=== PATIENT | female | born 1965 | race Asian ===

== ENCOUNTER 2021-04-19 21:51 | Inpatient (IN) | payer MEDICARE, MEDICAID ==
[~2021-04-19] VITALS: Ht 165.1 cm; Wt 78.0 kg
[2021-04-19] MEDS ORDERED: PIPERACILLIN/TAZ 3.375G PREMIX 50 ML IV ONE (22:15)
[2021-04-19] MEDS ORDERED: SODIUM CHLORIDE 0.9% 1,000 ML IV ONE (22:15)
[2021-04-19] MEDS ORDERED: VANCOMYCIN 1 G PREMIX 200 ML IV ONE (22:15)
[2021-04-19 22:28] LABS: CHLORIDE 95 mEq/L (98-107)
[2021-04-19 22:31] LABS: BASOPHILS % 0.1 % (0.0-2.0); EOSINOPHILS % 0.2 % (0.0-5.0); ETHANOL BLOOD < 10 mg/dL; HEMATOCRIT. 34.9 % (36.0-48.0); HEMOGLOBIN. 11.3 g/dL (12.0-16.0); LYMPHOCYTES % 9.5 % (20.0-50.0); MEAN CORPUSCULAR VOLUME 86.6 fL (81.0-99.0); MEAN PLATELET VOLUME 7.6 fl (7.4-10.4); MONOCYTES % 3.9 % (2.0-8.0); NEUTROPHILS % 86.3 % (40.0-76.0); PLATELET 311 x1000/uL (130-400); RED BLOOD CELL COUNT 4.03 mill/uL (4.2-5.4); RED CELL DISTRIBUTION WIDTH 14.1 % (11.6-14.6)
[2021-04-19 23:18] LABS: CLARITY URINE CLEAR (CLEAR); COLOR URINE YELLOW (YELLOW); KETONES URINE TRACE (NEGATIVE); LEUKOCYTE ESTERASE URINE 2+ (NEGATIVE); NITRITE URINE NEGATIVE (NEGATIVE); OCCULT BLOOD URINE TRACE (NEGATIVE); PH URINE 7.5 (4.5-8.0); PROTEIN URINE 4+ (NEGATIVE); SPECIFIC GRAVITY URINE 1.017 (1.005-1.030); UROBILINOGEN URINE 0.2 E.U./dL (0.2-1.0)
[2021-04-19 23:34] LABS: *BARBITURATES SCREEN URINE NEGATIVE (NEGATIVE); *COCAINE SCREEN URINE NEGATIVE (NEGATIVE); METHADONE URINE SCREEN NEGATIVE (NEGATIVE); OPIATES URINE SCREEN PRESUMTIVE POSITIVE (NEGATIVE); PHENCYCLIDINE URINE SCREEN NEGATIVE (NEGATIVE)
[2021-04-19 23:35] LABS: *AMPHETAMINES SCREEN URINE NEGATIVE (NEGATIVE); *BENZODIAZEPINES SCREEN URINE NEGATIVE (NEGATIVE); CANNABINOID URINE SCREEN NEGATIVE (NEGATIVE)
[2021-04-20] MEDS: INSULIN LISPRO 100 UNITS/ML SUBCUT SCH ×4 (09:00→21:00)
[2021-04-20] MEDS ORDERED: DEXTROSE 50% WATER 50ML SYRINGE IV PRN (09:00)
[2021-04-20] MEDS ORDERED: DEXTROSE 50% WATER 50ML SYRINGE IV NR (09:00)
[2021-04-20] MEDS: BLOOD SUGAR DIAGNOSTIC STRIP TEST SCH ×4 (09:12→20:15)
[2021-04-20 15:30] VITALS: BP 103/47
[2021-04-20] MEDS ORDERED: ACETAMINOPHEN 325MG TABLET PO PRN (15:45)
[2021-04-20 16:00] VITALS: BP 168/80
[2021-04-20] MEDS: AMLODIPINE 10MG TABLET PO SCH (16:58)
[2021-04-20] MEDS: CEFTRIAXONE 1,000 MG in DEXTROSE 5% WATER 50 ML IV SCH (18:05)
[2021-04-20 20:00] VITALS: BP 125/66
[2021-04-21] VITALS: BP 145/48
[2021-04-21 04:00] VITALS: BP 119/66
[2021-04-21 06:05] LABS: BASOPHILS % 0.1 % (0.0-2.0); EOSINOPHILS % 5.2 % (0.0-5.0); HEMATOCRIT. 27.8 % (36.0-48.0); HEMOGLOBIN. 9.2 g/dL (12.0-16.0); LYMPHOCYTES % 14.4 % (20.0-50.0); MEAN CORPUSCULAR HEMOGLOBIN 28.8 pg (28.0-32.0); MEAN CORPUSCULAR VOLUME 86.9 fL (81.0-99.0); MEAN PLATELET VOLUME 7.6 fl (7.4-10.4); MONOCYTES % 8.2 % (2.0-8.0); NEUTROPHILS % 72.1 % (40.0-76.0); PLATELET 282 x1000/uL (130-400); RED CELL DISTRIBUTION WIDTH 14.3 % (11.6-14.6)
[2021-04-21] MEDS: BLOOD SUGAR DIAGNOSTIC STRIP TEST SCH ×4 (06:08→21:12)
[2021-04-21] MEDS: INSULIN LISPRO 100 UNITS/ML SUBCUT SCH ×4 (06:09→21:34)
[2021-04-21 08:00] VITALS: BP 158/58
[2021-04-21] MEDS: AMLODIPINE 10MG TABLET PO SCH (09:12)
[2021-04-21 12:00] VITALS: BP 150/78
[2021-04-21 16:00] VITALS: BP 164/76
[2021-04-21] MEDS: CEFTRIAXONE 1,000 MG in DEXTROSE 5% WATER 50 ML IV SCH (17:19)
[2021-04-21] MEDS: LOSARTAN POTASSIUM 50 MG TABLET PO SCH (17:19)
[2021-04-21 20:00] VITALS: BP 151/73
[2021-04-21 20:56] LABS: T4 FREE 1.11 ng/dL (0.76-1.46)
[2021-04-22] VITALS: BP 132/65
[2021-04-22 04:00] VITALS: BP 156/61
[2021-04-22] MEDS: BLOOD SUGAR DIAGNOSTIC STRIP TEST SCH ×4 (05:56→20:15)
[2021-04-22 06:45] LABS: BASOPHILS % 0.1 % (0.0-2.0); HEMATOCRIT. 30.4 % (36.0-48.0); HEMOGLOBIN. 9.8 g/dL (12.0-16.0); LYMPHOCYTES % 9.9 % (20.0-50.0); MEAN CORPUSCULAR HEMOGLOBIN 27.9 pg (28.0-32.0); MEAN CORPUSCULAR VOLUME 86.3 fL (81.0-99.0); MEAN PLATELET VOLUME 7.7 fl (7.4-10.4); MONOCYTES % 7.7 % (2.0-8.0); NEUTROPHILS % 76.3 % (40.0-76.0); PLATELET 286 x1000/uL (130-400); RED BLOOD CELL COUNT 3.52 mill/uL (4.2-5.4); RED CELL DISTRIBUTION WIDTH 14.5 % (11.6-14.6)
[2021-04-22] MEDS: INSULIN LISPRO 100 UNITS/ML SUBCUT SCH ×4 (07:15→20:15)
[2021-04-22 07:30] LABS: PHOSPHORUS 8.9 mg/dL (2.5-4.9)
[2021-04-22 08:00] VITALS: BP 152/64
[2021-04-22] MEDS: LOSARTAN POTASSIUM 50 MG TABLET PO SCH (08:05)
[2021-04-22] MEDS: AMLODIPINE 10MG TABLET PO SCH (08:06)
[2021-04-22] MEDS: ONDANSETRON HCL 4MG/2ML INJ IV PRN (10:53)
[2021-04-22 12:00] VITALS: BP 160/71
[2021-04-22] MEDS: ENOXAPARIN 30MG/0.3ML SYR SUBCUT SCH (13:40)
[2021-04-22 16:00] VITALS: BP 196/73
[2021-04-22] MEDS: CLONIDINE 0.1MG TABLET PO PRN (16:50)
[2021-04-22] MEDS: SEVELAMER CARBONATE 800 MG TABLET PO SCH (16:51)
[2021-04-22 19:01] LABS: HEPATITIS B SURFACE AB < 3.1 mIU/mL
[2021-04-22 20:00] VITALS: BP 130/59
[2021-04-22] MEDS: ATORVASTATIN CALCIUM 40MG TABLET PO SCH (20:15)
[2021-04-22 22:01] LABS: HEPATITIS B SURFACE ANTIGEN NEGATIVE
[2021-04-22 22:31] LABS: HEPATITIS A AB IGM NEGATIVE (NEGATIVE)
[2021-04-23] VITALS: BP 121/60
[2021-04-23] MEDS: CEFTRIAXONE 1,000 MG in DEXTROSE 5% WATER 50 ML IV SCH ×2 (02:48→17:19)
[2021-04-23] MEDS: ONDANSETRON HCL 4MG/2ML INJ IV PRN ×2 (03:38→10:02)
[2021-04-23 04:00] VITALS: BP 145/63
[2021-04-23] MEDS: BLOOD SUGAR DIAGNOSTIC STRIP TEST SCH ×4 (06:40→20:31)
[2021-04-23] MEDS: INSULIN LISPRO 100 UNITS/ML SUBCUT SCH ×4 (06:40→20:31)
[2021-04-23 07:20] LABS: BASOPHILS % 0.1 % (0.0-2.0); EOSINOPHILS % 3.6 % (0.0-5.0); HEMOGLOBIN. 9.7 g/dL (12.0-16.0); LYMPHOCYTES % 9.6 % (20.0-50.0); MEAN CORPUSCULAR HEMOGLOBIN 28.3 pg (28.0-32.0); MEAN PLATELET VOLUME 7.5 fl (7.4-10.4); MONOCYTES % 5.9 % (2.0-8.0); NEUTROPHILS % 80.8 % (40.0-76.0); PLATELET 293 x1000/uL (130-400); RED BLOOD CELL COUNT 3.41 mill/uL (4.2-5.4); RED CELL DISTRIBUTION WIDTH 14.2 % (11.6-14.6)
[2021-04-23 08:00] VITALS: BP 153/62
[2021-04-23] MEDS: ASPIRIN 81MG TABLET PO SCH (08:06)
[2021-04-23] MEDS: SEVELAMER CARBONATE 800 MG TABLET PO SCH ×3 (08:07→17:18)
[2021-04-23 12:00] VITALS: BP 151/52
[2021-04-23] MEDS ORDERED: METOCLOPRAMIDE HCL 10MG/2ML VIAL IV PRN (13:30)
[2021-04-23] MEDS: ENOXAPARIN 30MG/0.3ML SYR SUBCUT SCH (13:55)
[2021-04-23] MEDS: FOLIC ACID 1MG TABLET PO SCH (14:54)
[2021-04-23] MEDS: METOCLOPRAMIDE HCL 10MG/2ML VIAL IV SCH ×3 (14:55→23:27)
[2021-04-23 16:00] VITALS: BP 143/60
[2021-04-23 19:58] VITALS: BP 147/57
[2021-04-23] MEDS: ATORVASTATIN CALCIUM 40MG TABLET PO SCH (20:31)
[2021-04-24 00:06] VITALS: BP 137/54
[2021-04-24 04:00] VITALS: BP 150/58
[2021-04-24] MEDS: BLOOD SUGAR DIAGNOSTIC STRIP TEST SCH ×4 (05:57→22:51)
[2021-04-24] MEDS: METOCLOPRAMIDE HCL 10MG/2ML VIAL IV SCH ×3 (06:01→18:01)
[2021-04-24] MEDS: INSULIN LISPRO 100 UNITS/ML SUBCUT SCH ×4 (06:30→22:51)
[2021-04-24 07:17] LABS: TOTAL IRON BINDING CAPACITY 181 ug/dL (250-450)
[2021-04-24 08:00] VITALS: BP 153/63
[2021-04-24] MEDS: SEVELAMER CARBONATE 800 MG TABLET PO SCH ×3 (08:58→17:36)
[2021-04-24] MEDS: ASPIRIN 81MG TABLET PO SCH (08:58)
[2021-04-24] MEDS: FOLIC ACID 1MG TABLET PO SCH (08:59)
[2021-04-24 12:00] VITALS: BP 156/64
[2021-04-24] MEDS: ENOXAPARIN 30MG/0.3ML SYR SUBCUT SCH (12:39)
[2021-04-24 16:00] VITALS: BP 164/69
[2021-04-24 18:00] LABS: BASOPHILS % 0.2 % (0.0-2.0); EOSINOPHILS % 5.7 % (0.0-5.0); HEMATOCRIT. 29.1 % (36.0-48.0); HEMOGLOBIN. 9.6 g/dL (12.0-16.0); LYMPHOCYTES % 13.8 % (20.0-50.0); MEAN CORPUSCULAR VOLUME 85.4 fL (81.0-99.0); MEAN PLATELET VOLUME 7.5 fl (7.4-10.4); MONOCYTES % 8.9 % (2.0-8.0); NEUTROPHILS % 71.4 % (40.0-76.0); PLATELET 299 x1000/uL (130-400); RED BLOOD CELL COUNT 3.41 mill/uL (4.2-5.4); RED CELL DISTRIBUTION WIDTH 13.7 % (11.6-14.6)
[2021-04-24] MEDS: CEFTRIAXONE 1,000 MG in DEXTROSE 5% WATER 50 ML IV SCH (18:01)
[2021-04-24 20:00] VITALS: BP 137/67
[2021-04-24] MEDS: ATORVASTATIN CALCIUM 40MG TABLET PO SCH (22:55)
[2021-04-25] VITALS (7 sets, daily range): BP systolic 128–174; BP diastolic 65–75
[2021-04-25] MEDS: METOCLOPRAMIDE HCL 10MG/2ML VIAL IV SCH ×4 (00:17→18:31)
[2021-04-25] MEDS: CLONIDINE 0.1MG TABLET PO PRN ×2 (05:08→20:18)
[2021-04-25] MEDS: BLOOD SUGAR DIAGNOSTIC STRIP TEST SCH ×4 (06:42→20:07)
[2021-04-25] MEDS: INSULIN LISPRO 100 UNITS/ML SUBCUT SCH ×4 (06:43→20:20)
[2021-04-25] MEDS: SEVELAMER CARBONATE 800 MG TABLET PO SCH ×4 (06:43→17:07)
[2021-04-25] MEDS: ASPIRIN 81MG TABLET PO SCH (08:41)
[2021-04-25] MEDS: FOLIC ACID 1MG TABLET PO SCH (08:41)
[2021-04-25] MEDS ORDERED: CYANOCOBALAMIN 1000MCG/ML VIAL IM SCH (10:00)
[2021-04-25 13:10] LABS: ANTI-CARDIOLIPIN AB IGA < 9 APL U/mL (0-11); ANTI-CARDIOLIPIN AB IGG < 9 GPL U/mL (0-14); ANTI-CARDIOLIPIN AB IGM < 9 MPL U/mL (0-12)
[2021-04-25] MEDS: ENOXAPARIN 30MG/0.3ML SYR SUBCUT SCH (13:56)
[2021-04-25] MEDS ORDERED: NIFEDIPINE XL 30MG TAB PO SCH (14:00)
[2021-04-25 16:47] LABS: HEPATITIS B SURFACE ANTIGEN NEGATIVE
[2021-04-25 17:17] LABS: HEPATITIS A AB IGM NEGATIVE (NEGATIVE)
[2021-04-25] MEDS: CEFTRIAXONE 1,000 MG in DEXTROSE 5% WATER 50 ML IV SCH (18:30)
[2021-04-25] MEDS: ATORVASTATIN CALCIUM 40MG TABLET PO SCH (20:17)
[2021-04-26] MEDS ORDERED: CLOP-31 PO (10:34)
[2021-04-26] MEDS ORDERED: METO-539 PO (10:34)
[2021-04-26] MEDS ORDERED: GABA-290 PO (10:34)
[2021-04-26] MEDS ORDERED: FLUT9.9S BOTHNSTRLS (10:34)
[2021-04-26] MEDS ORDERED: CALC667T6 PO (10:34)
[2021-04-26] MEDS ORDERED: AMLO-337 MT (10:34)
[2021-04-26] MEDS ORDERED: LIP40 PO (10:34)
[2021-04-26] MEDS ORDERED: INSU100I24 SQ (10:34)
[2021-04-27 10:06] LABS: ANTI-THROMBIN ACTIVITY 107 % (75-135); PROTEIN C FUNCTIONAL 164 % (73-180)
== END 2021-04-25 22:23 | DRG 64 ==
LOC: EDBD → ER 21:51 → 5WST 22:53 → EDBEDREQSVC 04-20 12:04 → ENRESERV 04-20 12:29
PROVIDERS: ADMIT Internal Medicine; ATTEND Internal Medicine
PROC: 5A1D70Z Performance of Urinary Filtration, Intermittent, Less than 6 Hours Per Day (ICD-10-PCS; principal; 2021-04-22)
PROC: 5A1D70Z Performance of Urinary Filtration, Intermittent, Less than 6 Hours Per Day (ICD-10-PCS; 2021-04-23)
PROC: 5A1D70Z Performance of Urinary Filtration, Intermittent, Less than 6 Hours Per Day (ICD-10-PCS; 2021-04-25)
DX: I63.9 Cerebral infarction, unspecified (principal); G92 Toxic encephalopathy; J96.01 Acute respiratory failure with hypoxia; N18.6 End stage renal disease; I12.0 Hypertensive chronic kidney disease with stage 5 chronic kidney disease or end stage renal disease; J98.11 Atelectasis; N39.0 Urinary tract infection, site not specified; E11.649 Type 2 diabetes mellitus with hypoglycemia without coma; R47.01 Aphasia; I16.0 Hypertensive urgency; K80.20 Calculus of gallbladder without cholecystitis without obstruction; E11.22 Type 2 diabetes mellitus with diabetic chronic kidney disease; E53.8 Deficiency of other specified B group vitamins; B95.2 Enterococcus as the cause of diseases classified elsewhere; D63.1 Anemia in chronic kidney disease; E21.3 Hyperparathyroidism, unspecified; Z60.2 Problems related to living alone; R26.9 Unspecified abnormalities of gait and mobility; E66.9 Obesity, unspecified; Z20.822 Contact with and (suspected) exposure to COVID-19; Y92.009 Unspecified place in unspecified non-institutional (private) residence as the place of occurrence of the external cause; Z79.4 Long term (current) use of insulin; Z82.49 Family history of ischemic heart disease and other diseases of the circulatory system; Z90.710 Acquired absence of both cervix and uterus; Z99.2 Dependence on renal dialysis; Z68.28 Body mass index [BMI] 28.0-28.9, adult; Z79.899 Other long term (current) drug therapy
CPT/HCPCS: 36415; 70544; 70551; 71045; 74177; 80048; 80053; 80061; 80305; 80320; 81003; 81400; 81403; 81407; 81479; 82140; 82270; 82607; 82728; 82746; 82962; 83036; 83540; 83550; 83605; 83880; 84100; 84145; 84439; 84443; 84481; 84484; 85025; 85300; 85303; 85306; 86147; 86705; 86706; 86709; 86803; 87077; 87186; 87340; 87426; 92523; 93005; 93306; 93880; 97162; 97166; 97530; 99218; 99291; C1893; J0696; J1650; J1815; J2405; J2543; J2765; J3370; J3420; J7030; J7060; G0480

== ENCOUNTER 2021-04-25 23:39 | Inpatient (IN) | payer MEDICARE, MEDICAID ==
[~2021-04-25] VITALS: Ht 165.1 cm; Wt 72.1 kg
[2021-04-25 22:30] VITALS: BP 170/75
[2021-04-25 23:00] VITALS: BP 170/75
[2021-04-26] MEDS ORDERED: DEXTROSE 50% WATER 50ML SYRINGE IV PRN
[2021-04-26] MEDS ORDERED: ONDANSETRON HCL 4MG/2ML INJ IV PRN
[2021-04-26 01:00] VITALS: BP 138/65
[2021-04-26] MEDS: METOCLOPRAMIDE HCL 10MG/2ML VIAL IV SCH ×4 (02:01→18:00)
[2021-04-26] MEDS: INSULIN LISPRO 100 UNITS/ML SUBCUT SCH ×4 (05:43→20:29)
[2021-04-26] MEDS: BLOOD SUGAR DIAGNOSTIC STRIP TEST SCH ×4 (05:43→20:29)
[2021-04-26 08:05] VITALS: BP 169/79
[2021-04-26] MEDS: FOLIC ACID 1MG TABLET PO SCH (08:19)
[2021-04-26] MEDS: ASPIRIN 81MG TABLET PO SCH (08:19)
[2021-04-26] MEDS: SEVELAMER CARBONATE 800 MG TABLET PO SCH ×4 (08:20→20:28)
[2021-04-26] MEDS: ENOXAPARIN 30MG/0.3ML SYR SUBCUT SCH (08:20)
[2021-04-26] MEDS: NIFEDIPINE XL 30MG TAB PO SCH (08:27)
[2021-04-26 10:08] LABS: BASOPHILS % 0.1 % (0.0-2.0); EOSINOPHILS % 6.3 % (0.0-5.0); HEMOGLOBIN. 9.2 g/dL (12.0-16.0); LYMPHOCYTES % 13.4 % (20.0-50.0); MEAN CORPUSCULAR HEMOGLOBIN 27.9 pg (28.0-32.0); MEAN CORPUSCULAR VOLUME 85.3 fL (81.0-99.0); MEAN PLATELET VOLUME 7.4 fl (7.4-10.4); MONOCYTES % 8.7 % (2.0-8.0); NEUTROPHILS % 71.5 % (40.0-76.0); PLATELET 283 x1000/uL (130-400); RED BLOOD CELL COUNT 3.29 mill/uL (4.2-5.4); RED CELL DISTRIBUTION WIDTH 13.6 % (11.6-14.6)
[2021-04-26 10:10] LABS: CHLORIDE 101 mEq/L (98-107)
[2021-04-26] MEDS ORDERED: CLOP-31 PO (10:34)
[2021-04-26] MEDS ORDERED: AMLO-337 MT (10:34)
[2021-04-26] MEDS ORDERED: INSU100I24 SQ (10:34)
[2021-04-26] MEDS ORDERED: GABA-290 PO (10:34)
[2021-04-26] MEDS ORDERED: METO-539 PO (10:34)
[2021-04-26] MEDS ORDERED: CALC667T6 PO (10:34)
[2021-04-26] MEDS ORDERED: LIP40 PO (10:34)
[2021-04-26] MEDS ORDERED: FLUT9.9S BOTHNSTRLS (10:34)
[2021-04-26 12:00] VITALS: BP 144/66
[2021-04-26 16:00] VITALS: BP 139/61
[2021-04-26] MEDS: ATORVASTATIN CALCIUM 40MG TABLET PO SCH (20:29)
[2021-04-26 22:00] VITALS: BP 168/71
[2021-04-26 22:30] VITALS: BP 151/63
[2021-04-27] MEDS: METOCLOPRAMIDE HCL 10MG/2ML VIAL IV SCH ×4 (00:08→17:04)
[2021-04-27] MEDS: BLOOD SUGAR DIAGNOSTIC STRIP TEST SCH ×4 (05:32→20:58)
[2021-04-27] MEDS: INSULIN LISPRO 100 UNITS/ML SUBCUT SCH ×4 (05:34→21:43)
[2021-04-27 08:00] VITALS: BP 144/43
[2021-04-27] MEDS: SEVELAMER CARBONATE 800 MG TABLET PO SCH ×5 (08:06→16:31)
[2021-04-27] MEDS: ASPIRIN 81MG TABLET PO SCH (08:06)
[2021-04-27] MEDS: ENOXAPARIN 30MG/0.3ML SYR SUBCUT SCH (08:06)
[2021-04-27] MEDS: FOLIC ACID 1MG TABLET PO SCH (08:06)
[2021-04-27] MEDS: NIFEDIPINE XL 30MG TAB PO SCH (08:10)
[2021-04-27] MEDS: DOCUSATE SODIUM 100MG CAPSULE PO SCH ×2 (12:14→17:04)
[2021-04-27] MEDS: LACTULOSE 20G/30ML UDC PO SCH ×4 (12:14→20:58)
[2021-04-27] MEDS ORDERED: NA PHOS,M-B/NA PHOS,DI-BA ENEMA 118ML PR NR (16:00)
[2021-04-27 20:00] VITALS: BP 144/58
[2021-04-27] MEDS: POLYETHYLENE GLYCOL 3350 (17GM) 1 DOSE PACK PO SCH (20:58)
[2021-04-27] MEDS: ATORVASTATIN CALCIUM 40MG TABLET PO SCH (20:58)
[2021-04-28] MEDS: METOCLOPRAMIDE HCL 10MG/2ML VIAL IV SCH ×4 (00:56→17:09)
[2021-04-28] MEDS: BLOOD SUGAR DIAGNOSTIC STRIP TEST SCH ×4 (06:27→21:50)
[2021-04-28] MEDS: INSULIN LISPRO 100 UNITS/ML SUBCUT SCH ×4 (06:27→21:00)
[2021-04-28 07:36] VITALS: BP 169/76
[2021-04-28 07:54] LABS: BASOPHILS % 0.2 % (0.0-2.0); EOSINOPHILS % 4.6 % (0.0-5.0); HEMATOCRIT. 28.7 % (36.0-48.0); HEMOGLOBIN. 9.5 g/dL (12.0-16.0); LYMPHOCYTES % 17.7 % (20.0-50.0); MEAN CORPUSCULAR HEMOGLOBIN 28.2 pg (28.0-32.0); MEAN CORPUSCULAR VOLUME 85.2 fL (81.0-99.0); MEAN PLATELET VOLUME 7.7 fl (7.4-10.4); MONOCYTES % 8.6 % (2.0-8.0); NEUTROPHILS % 68.9 % (40.0-76.0); PLATELET 258 x1000/uL (130-400); RED BLOOD CELL COUNT 3.36 mill/uL (4.2-5.4); RED CELL DISTRIBUTION WIDTH 13.7 % (11.6-14.6)
[2021-04-28] MEDS: FOLIC ACID 1MG TABLET PO SCH (08:50)
[2021-04-28] MEDS: ASPIRIN 81MG TABLET PO SCH (08:50)
[2021-04-28] MEDS: NIFEDIPINE XL 30MG TAB PO SCH (08:50)
[2021-04-28] MEDS: DOCUSATE SODIUM 100MG CAPSULE PO SCH ×2 (08:50→17:09)
[2021-04-28] MEDS: SEVELAMER CARBONATE 800 MG TABLET PO SCH ×3 (08:51→17:00)
[2021-04-28] MEDS: ENOXAPARIN 30MG/0.3ML SYR SUBCUT SCH (08:51)
[2021-04-28 20:00] VITALS: BP 156/66
[2021-04-28] MEDS: POLYETHYLENE GLYCOL 3350 (17GM) 1 DOSE PACK PO SCH (21:00)
[2021-04-28] MEDS: NIFEDIPINE XL 60MG TAB PO SCH (21:51)
[2021-04-28] MEDS: ATORVASTATIN CALCIUM 40MG TABLET PO SCH (21:51)
[2021-04-29] MEDS: BLOOD SUGAR DIAGNOSTIC STRIP TEST SCH ×4 (05:44→21:17)
[2021-04-29] MEDS: INSULIN LISPRO 100 UNITS/ML SUBCUT SCH ×4 (05:44→21:21)
[2021-04-29] MEDS: METOCLOPRAMIDE HCL 10MG/2ML VIAL IV SCH ×4 (05:45→18:07)
[2021-04-29 07:25] LABS: PHOSPHORUS 5.1 mg/dL (2.5-4.9)
[2021-04-29 07:46] VITALS: BP 125/57
[2021-04-29] MEDS: ASPIRIN 81MG TABLET PO SCH (08:26)
[2021-04-29] MEDS: FOLIC ACID 1MG TABLET PO SCH (08:26)
[2021-04-29] MEDS: DOCUSATE SODIUM 100MG CAPSULE PO SCH ×2 (08:26→18:07)
[2021-04-29] MEDS: SEVELAMER CARBONATE 800 MG TABLET PO SCH ×4 (08:26→17:00)
[2021-04-29] MEDS: ENOXAPARIN 30MG/0.3ML SYR SUBCUT SCH (08:27)
[2021-04-29] MEDS: NIFEDIPINE XL 60MG TAB PO SCH ×2 (08:27→21:00)
[2021-04-29 16:26] LABS: HEPATITIS B SURFACE ANTIGEN NEGATIVE
[2021-04-29 16:55] LABS: HEPATITIS A AB IGM NEGATIVE (NEGATIVE)
[2021-04-29 20:00] VITALS: BP 153/65
[2021-04-29] MEDS: POLYETHYLENE GLYCOL 3350 (17GM) 1 DOSE PACK PO SCH (21:00)
[2021-04-29] MEDS: ATORVASTATIN CALCIUM 40MG TABLET PO SCH (21:17)
[2021-04-30] MEDS: BLOOD SUGAR DIAGNOSTIC STRIP TEST SCH ×4 (05:29→21:00)
[2021-04-30] MEDS: INSULIN LISPRO 100 UNITS/ML SUBCUT SCH ×4 (05:29→22:25)
[2021-04-30] MEDS: METOCLOPRAMIDE HCL 10MG/2ML VIAL IV SCH ×5 (05:45→23:32)
[2021-04-30 08:00] VITALS: BP 155/87
[2021-04-30] MEDS: SEVELAMER CARBONATE 800 MG TABLET PO SCH ×2 (09:00→12:41)
[2021-04-30] MEDS: ASPIRIN 81MG TABLET PO SCH (09:55)
[2021-04-30] MEDS: FOLIC ACID 1MG TABLET PO SCH (09:56)
[2021-04-30] MEDS: ENOXAPARIN 30MG/0.3ML SYR SUBCUT SCH (09:56)
[2021-04-30] MEDS: CLONIDINE 0.1MG TABLET PO PRN (09:57)
[2021-04-30] MEDS: NIFEDIPINE XL 60MG TAB PO SCH ×2 (09:57→22:09)
[2021-04-30] MEDS: DOCUSATE SODIUM 100MG CAPSULE PO SCH ×2 (09:57→18:02)
[2021-04-30 16:09] LABS: HEPATITIS A AB IGM NEGATIVE (NEGATIVE)
[2021-04-30 17:20] LABS: HEPATITIS B SURFACE ANTIGEN NEGATIVE
[2021-04-30 20:00] VITALS: BP 149/71
[2021-04-30] MEDS: ATORVASTATIN CALCIUM 40MG TABLET PO SCH (22:08)
[2021-04-30] MEDS: POLYETHYLENE GLYCOL 3350 (17GM) 1 DOSE PACK PO SCH (22:09)
[2021-05-01 06:21] LABS: BASOPHILS % 0.1 % (0.0-2.0); EOSINOPHILS % 5.3 % (0.0-5.0); HEMATOCRIT. 26.7 % (36.0-48.0); HEMOGLOBIN. 8.8 g/dL (12.0-16.0); LYMPHOCYTES % 21.4 % (20.0-50.0); MEAN CORPUSCULAR HEMOGLOBIN 27.9 pg (28.0-32.0); MEAN CORPUSCULAR VOLUME 84.6 fL (81.0-99.0); MEAN PLATELET VOLUME 7.9 fl (7.4-10.4); MONOCYTES % 10.3 % (2.0-8.0); NEUTROPHILS % 62.9 % (40.0-76.0); PLATELET 224 x1000/uL (130-400); RED BLOOD CELL COUNT 3.16 mill/uL (4.2-5.4); RED CELL DISTRIBUTION WIDTH 13.9 % (11.6-14.6)
[2021-05-01 06:24] LABS: PHOSPHORUS 5.2 mg/dL (2.5-4.9)
[2021-05-01] MEDS: BLOOD SUGAR DIAGNOSTIC STRIP TEST SCH ×3 (06:37→21:00)
[2021-05-01] MEDS: INSULIN LISPRO 100 UNITS/ML SUBCUT SCH ×4 (06:37→22:33)
[2021-05-01] MEDS: METOCLOPRAMIDE HCL 10MG/2ML VIAL IV SCH ×2 (06:38→12:56)
[2021-05-01 08:15] VITALS: BP 117/71
[2021-05-01] MEDS: SEVELAMER CARBONATE 800 MG TABLET PO SCH ×3 (09:00→17:00)
[2021-05-01] MEDS: ASPIRIN 81MG TABLET PO SCH (09:10)
[2021-05-01] MEDS: FOLIC ACID 1MG TABLET PO SCH (09:11)
[2021-05-01] MEDS: DOCUSATE SODIUM 100MG CAPSULE PO SCH (09:11)
[2021-05-01] MEDS: NIFEDIPINE XL 60MG TAB PO SCH ×2 (09:11→20:26)
[2021-05-01] MEDS: ENOXAPARIN 30MG/0.3ML SYR SUBCUT SCH (09:12)
[2021-05-01] MEDS: ACETAMINOPHEN 325MG TABLET PO PRN ×2 (09:12→20:25)
[2021-05-01 20:00] VITALS: BP 153/70
[2021-05-01] MEDS: ATORVASTATIN CALCIUM 40MG TABLET PO SCH (20:26)
[2021-05-01] MEDS: POLYETHYLENE GLYCOL 3350 (17GM) 1 DOSE PACK PO SCH (20:42)
[2021-05-02] MEDS: METOCLOPRAMIDE HCL 10MG/2ML VIAL IV SCH ×5 (00:43→23:10)
[2021-05-02 06:19] LABS: BASOPHILS % 0.1 % (0.0-2.0); EOSINOPHILS % 4.7 % (0.0-5.0); HEMATOCRIT. 27.7 % (36.0-48.0); HEMOGLOBIN. 9.1 g/dL (12.0-16.0); LYMPHOCYTES % 17.2 % (20.0-50.0); MEAN CORPUSCULAR HEMOGLOBIN 27.8 pg (28.0-32.0); MEAN CORPUSCULAR VOLUME 84.9 fL (81.0-99.0); MEAN PLATELET VOLUME 7.7 fl (7.4-10.4); MONOCYTES % 11.5 % (2.0-8.0); NEUTROPHILS % 66.5 % (40.0-76.0); PLATELET 221 x1000/uL (130-400); RED BLOOD CELL COUNT 3.27 mill/uL (4.2-5.4); RED CELL DISTRIBUTION WIDTH 13.8 % (11.6-14.6)
[2021-05-02] MEDS: BLOOD SUGAR DIAGNOSTIC STRIP TEST SCH ×4 (06:30→21:27)
[2021-05-02 08:00] VITALS: BP 171/76
[2021-05-02] MEDS: ASPIRIN 81MG TABLET PO SCH (08:37)
[2021-05-02] MEDS: FOLIC ACID 1MG TABLET PO SCH (08:38)
[2021-05-02] MEDS: NIFEDIPINE XL 60MG TAB PO SCH ×2 (08:38→21:21)
[2021-05-02] MEDS: INSULIN LISPRO 100 UNITS/ML SUBCUT SCH ×4 (08:48→21:00)
[2021-05-02] MEDS: ENOXAPARIN 30MG/0.3ML SYR SUBCUT SCH (08:48)
[2021-05-02] MEDS ORDERED: HYDRALAZINE 20MG/ML VIAL IV ONE (09:00)
[2021-05-02] MEDS: SEVELAMER CARBONATE 800 MG TABLET PO SCH ×4 (09:00→17:50)
[2021-05-02] MEDS: DOCUSATE SODIUM 100MG CAPSULE PO SCH ×3 (09:00→17:50)
[2021-05-02] MEDS: HYDRALAZINE 10 MG in SODIUM CHLORIDE 0.9% 49.5 ML IV NR ×2 (10:00→11:51)
[2021-05-02] MEDS ORDERED: LIDOCAINE HCL 2% JELLY 5ML ONE (12:43)
[2021-05-02] MEDS ORDERED: TETRACAINE/BENZOCAINE/BUTAMBEN 20 GM SPRAY MM ONE (12:44)
[2021-05-02] MEDS ORDERED: MIDAZOLAM HCL 2 MG/2 ML VIAL ONE (13:04)
[2021-05-02] MEDS ORDERED: FENTANYL CITRATE/PF 50MCG/ML 2ML VIAL ONE (13:05)
[2021-05-02] MEDS ORDERED: SULFAMETHOXAZOLE/TRIMETHOPRIM 800/160MG TABLET PO SCH (15:00)
[2021-05-02] MEDS: LOSARTAN POTASSIUM 25 MG TABLET PO SCH (17:50)
[2021-05-02] MEDS: ACETAMINOPHEN 325MG TABLET PO PRN (19:01)
[2021-05-02 20:00] VITALS: BP 145/62
[2021-05-02 20:29] LABS: HEPATITIS B SURFACE ANTIGEN NEGATIVE
[2021-05-02 20:59] LABS: HEPATITIS A AB IGM NEGATIVE (NEGATIVE)
[2021-05-02] MEDS: POLYETHYLENE GLYCOL 3350 (17GM) 1 DOSE PACK PO SCH (21:00)
[2021-05-02] MEDS: ATORVASTATIN CALCIUM 40MG TABLET PO SCH (21:21)
[2021-05-03] MEDS: CLONIDINE 0.1MG TABLET PO PRN ×2 (02:52→08:44)
[2021-05-03 03:00] VITALS: BP 172/67
[2021-05-03] MEDS: MORPHINE SULFATE 2 MG/ML CPJ (NOT FOR IM USE) IV PRN ×3 (03:17→20:31)
[2021-05-03 03:51] LABS: BASOPHILS % 0.1 % (0.0-2.0); EOSINOPHILS % 3.5 % (0.0-5.0); HEMATOCRIT. 27.6 % (36.0-48.0); LYMPHOCYTES % 16.3 % (20.0-50.0); MEAN CORPUSCULAR HEMOGLOBIN 27.8 pg (28.0-32.0); MEAN CORPUSCULAR VOLUME 85.1 fL (81.0-99.0); MEAN PLATELET VOLUME 7.4 fl (7.4-10.4); MONOCYTES % 11.7 % (2.0-8.0); NEUTROPHILS % 68.4 % (40.0-76.0); PLATELET 227 x1000/uL (130-400); RED BLOOD CELL COUNT 3.24 mill/uL (4.2-5.4); RED CELL DISTRIBUTION WIDTH 13.9 % (11.6-14.6)
[2021-05-03] MEDS: METOCLOPRAMIDE HCL 10MG/2ML VIAL IV SCH ×3 (05:43→18:30)
[2021-05-03] MEDS: BLOOD SUGAR DIAGNOSTIC STRIP TEST SCH ×4 (05:47→21:00)
[2021-05-03] MEDS: INSULIN LISPRO 100 UNITS/ML SUBCUT SCH ×4 (05:47→21:00)
[2021-05-03 05:49] VITALS: BP 132/65
[2021-05-03 08:15] VITALS: BP 137/67
[2021-05-03] MEDS: ASPIRIN 81MG TABLET PO SCH (08:46)
[2021-05-03] MEDS: FOLIC ACID 1MG TABLET PO SCH (08:47)
[2021-05-03] MEDS: DOCUSATE SODIUM 100MG CAPSULE PO SCH ×2 (08:47→17:06)
[2021-05-03] MEDS: LOSARTAN POTASSIUM 25 MG TABLET PO SCH (08:47)
[2021-05-03] MEDS: NIFEDIPINE XL 60MG TAB PO SCH ×2 (08:48→21:00)
[2021-05-03] MEDS: SEVELAMER CARBONATE 800 MG TABLET PO SCH ×3 (08:48→17:00)
[2021-05-03] MEDS: ENOXAPARIN 30MG/0.3ML SYR SUBCUT SCH (08:50)
[2021-05-03] MEDS ORDERED: PANTOPRAZOLE 40MG DR TABLET PO SCH (14:15)
[2021-05-03] MEDS ORDERED: MAGNESIUM HYDROXIDE 400MG/5ML 30ML UDC PO NR (14:15)
[2021-05-03 20:00] VITALS: BP 127/58
[2021-05-03] MEDS ORDERED: FAMOTIDINE 20MG TABLET PO SCH (21:00)
[2021-05-03] MEDS: POLYETHYLENE GLYCOL 3350 (17GM) 1 DOSE PACK PO SCH (21:33)
[2021-05-03] MEDS: ATORVASTATIN CALCIUM 40MG TABLET PO SCH (21:33)
[2021-05-04] MEDS: METOCLOPRAMIDE HCL 10MG/2ML VIAL IV SCH ×4 (01:24→18:31)
[2021-05-04] MEDS: BLOOD SUGAR DIAGNOSTIC STRIP TEST SCH ×4 (06:57→21:00)
[2021-05-04 07:49] VITALS: BP 151/69
[2021-05-04] MEDS: INSULIN LISPRO 100 UNITS/ML SUBCUT SCH ×4 (08:26→21:00)
[2021-05-04] MEDS: MORPHINE SULFATE 2 MG/ML CPJ (NOT FOR IM USE) IV PRN (08:50)
[2021-05-04] MEDS: LOSARTAN POTASSIUM 25 MG TABLET PO SCH (08:51)
[2021-05-04] MEDS: FOLIC ACID 1MG TABLET PO SCH (08:51)
[2021-05-04] MEDS: SEVELAMER CARBONATE 800 MG TABLET PO SCH ×3 (08:52→17:26)
[2021-05-04] MEDS: ASPIRIN 81MG TABLET PO SCH (08:52)
[2021-05-04] MEDS: DOCUSATE SODIUM 100MG CAPSULE PO SCH ×2 (08:52→17:26)
[2021-05-04] MEDS: NIFEDIPINE XL 60MG TAB PO SCH ×2 (08:52→21:26)
[2021-05-04] MEDS: ENOXAPARIN 30MG/0.3ML SYR SUBCUT SCH (08:55)
[2021-05-04] MEDS: LACTULOSE 20G/30ML UDC PO SCH ×3 (12:30→21:25)
[2021-05-04] MEDS: DULOXETINE HCL 20MG DR CAPSULE PO SCH (13:22)
[2021-05-04 17:11] LABS: 25-HYDROXY VITAMIN D3 7.8 ng/mL (.)
[2021-05-04 20:00] VITALS: BP 160/68
[2021-05-04] MEDS: ATORVASTATIN CALCIUM 40MG TABLET PO SCH (21:25)
[2021-05-04] MEDS: POLYETHYLENE GLYCOL 3350 (17GM) 1 DOSE PACK PO SCH (21:26)
[2021-05-04] MEDS: ACETAMINOPHEN 325MG TABLET PO PRN (21:27)
[2021-05-05] MEDS: METOCLOPRAMIDE HCL 10MG/2ML VIAL IV SCH ×2 (06:00)
[2021-05-05] MEDS: BLOOD SUGAR DIAGNOSTIC STRIP TEST SCH ×4 (06:33→21:00)
[2021-05-05] MEDS: PANTOPRAZOLE 40MG DR TABLET PO SCH (06:36)
[2021-05-05] MEDS: ASPIRIN 81MG TABLET PO SCH (09:00)
[2021-05-05] MEDS: ENOXAPARIN 30MG/0.3ML SYR SUBCUT SCH (09:00)
[2021-05-05] MEDS: FOLIC ACID 1MG TABLET PO SCH (09:00)
[2021-05-05] MEDS: SEVELAMER CARBONATE 800 MG TABLET PO SCH ×3 (09:00→17:00)
[2021-05-05] MEDS: INSULIN LISPRO 100 UNITS/ML SUBCUT SCH ×4 (09:00→21:00)
[2021-05-05] MEDS: LOSARTAN POTASSIUM 25 MG TABLET PO SCH (09:00)
[2021-05-05] MEDS: DOCUSATE SODIUM 100MG CAPSULE PO SCH ×2 (09:00→18:54)
[2021-05-05] MEDS: DULOXETINE HCL 20MG DR CAPSULE PO SCH (09:00)
[2021-05-05] MEDS: NIFEDIPINE XL 60MG TAB PO SCH ×3 (09:00→23:45)
[2021-05-05] MEDS ORDERED: ERGOCALCIFEROL 50000UNITS CAPSULE PO SCH (11:00)
[2021-05-05] MEDS: BISACODYL 10MG SUPP PR SCH ×2 (11:00→18:58)
[2021-05-05] MEDS: ACETAMINOPHEN 325MG TABLET PO PRN (11:52)
[2021-05-05] MEDS: ATORVASTATIN CALCIUM 40MG TABLET PO SCH (21:00)
[2021-05-05] MEDS: POLYETHYLENE GLYCOL 3350 (17GM) 1 DOSE PACK PO SCH (21:00)
[2021-05-05] MEDS: CLONIDINE 0.1MG TABLET PO PRN (23:44)
[2021-05-06] MEDS: BLOOD SUGAR DIAGNOSTIC STRIP TEST SCH ×4 (06:18→21:00)
[2021-05-06] MEDS: PANTOPRAZOLE 40MG DR TABLET PO SCH (06:18)
[2021-05-06 07:50] VITALS: BP 161/59
[2021-05-06] MEDS: INSULIN LISPRO 100 UNITS/ML SUBCUT SCH ×4 (09:00→21:00)
[2021-05-06] MEDS ORDERED: LOSARTAN POTASSIUM 50 MG TABLET PO SCH (09:00)
[2021-05-06] MEDS: ASPIRIN 81MG TABLET PO SCH (09:16)
[2021-05-06] MEDS: FOLIC ACID 1MG TABLET PO SCH (09:16)
[2021-05-06] MEDS: SEVELAMER CARBONATE 800 MG TABLET PO SCH ×3 (09:16→17:00)
[2021-05-06] MEDS: DOCUSATE SODIUM 100MG CAPSULE PO SCH ×2 (09:16→17:00)
[2021-05-06] MEDS: NIFEDIPINE XL 60MG TAB PO SCH (09:17)
[2021-05-06] MEDS: DULOXETINE HCL 20MG DR CAPSULE PO SCH (09:17)
[2021-05-06] MEDS: ENOXAPARIN 30MG/0.3ML SYR SUBCUT SCH (09:19)
[2021-05-06] MEDS: LOSARTAN POTASSIUM 100 MG TABLET PO SCH (09:30)
[2021-05-06 11:46] LABS: BASOPHILS % 0.1 % (0.0-2.0); EOSINOPHILS % 5.4 % (0.0-5.0); HEMATOCRIT. 28.6 % (36.0-48.0); HEMOGLOBIN. 9.5 g/dL (12.0-16.0); MEAN CORPUSCULAR VOLUME 84.4 fL (81.0-99.0); MEAN PLATELET VOLUME 7.6 fl (7.4-10.4); MONOCYTES % 10.2 % (2.0-8.0); NEUTROPHILS % 70.3 % (40.0-76.0); PLATELET 231 x1000/uL (130-400); RED BLOOD CELL COUNT 3.39 mill/uL (4.2-5.4); RED CELL DISTRIBUTION WIDTH 13.6 % (11.6-14.6)
[2021-05-06 12:01] VITALS: BP 146/62
[2021-05-06] MEDS: LACTULOSE 20G/30ML UDC PO SCH ×3 (14:26→21:00)
[2021-05-06] MEDS: ACETAMINOPHEN 325MG TABLET PO PRN (15:39)
[2021-05-06 20:00] VITALS: BP 161/80
[2021-05-06] MEDS: POLYETHYLENE GLYCOL 3350 (17GM) 1 DOSE PACK PO SCH (21:00)
[2021-05-07] MEDS: ATORVASTATIN CALCIUM 40MG TABLET PO SCH ×3 (00:48→21:30)
[2021-05-07] MEDS: NIFEDIPINE XL 60MG TAB PO SCH ×4 (00:49→21:31)
[2021-05-07] MEDS: BLOOD SUGAR DIAGNOSTIC STRIP TEST SCH ×4 (06:30→21:27)
[2021-05-07 07:20] VITALS: BP 160/70
[2021-05-07] MEDS: LACTULOSE 20G/30ML UDC PO SCH ×2 (09:00→12:30)
[2021-05-07] MEDS: FOLIC ACID 1MG TABLET PO SCH ×2 (09:00→10:56)
[2021-05-07] MEDS: INSULIN LISPRO 100 UNITS/ML SUBCUT SCH ×4 (09:00→21:00)
[2021-05-07] MEDS: HYDRALAZINE HCL 10MG TABLET PO SCH ×4 (09:00→21:31)
[2021-05-07] MEDS: ENOXAPARIN 30MG/0.3ML SYR SUBCUT SCH ×2 (09:00→10:49)
[2021-05-07] MEDS: ASPIRIN 81MG TABLET PO SCH ×2 (09:00→10:44)
[2021-05-07] MEDS: DOCUSATE SODIUM 100MG CAPSULE PO SCH ×3 (09:00→17:00)
[2021-05-07] MEDS: FAMOTIDINE 20MG TABLET PO SCH (10:37)
[2021-05-07] MEDS: DULOXETINE HCL 20MG DR CAPSULE PO SCH (10:37)
[2021-05-07] MEDS: LOSARTAN POTASSIUM 100 MG TABLET PO SCH (10:37)
[2021-05-07] MEDS: SEVELAMER CARBONATE 800 MG TABLET PO SCH ×3 (10:53→17:00)
[2021-05-07] MEDS: MORPHINE SULFATE 2 MG/ML CPJ (NOT FOR IM USE) IV PRN ×2 (11:09→21:33)
[2021-05-07 20:00] VITALS: BP 144/63
[2021-05-07] MEDS: POLYETHYLENE GLYCOL 3350 (17GM) 1 DOSE PACK PO SCH ×2 (21:00→21:32)
[2021-05-08] MEDS: BLOOD SUGAR DIAGNOSTIC STRIP TEST SCH ×4 (06:30→21:00)
[2021-05-08 08:14] VITALS: BP 164/81
[2021-05-08] MEDS: FAMOTIDINE 20MG TABLET PO SCH (08:50)
[2021-05-08] MEDS: HYDRALAZINE HCL 10MG TABLET PO SCH (08:50)
[2021-05-08] MEDS: DULOXETINE HCL 20MG DR CAPSULE PO SCH (08:50)
[2021-05-08] MEDS: DOCUSATE SODIUM 100MG CAPSULE PO SCH ×2 (08:50→16:38)
[2021-05-08] MEDS: FOLIC ACID 1MG TABLET PO SCH (08:50)
[2021-05-08] MEDS: NIFEDIPINE XL 60MG TAB PO SCH (08:50)
[2021-05-08] MEDS: ASPIRIN 81MG TABLET PO SCH (08:50)
[2021-05-08] MEDS: ENOXAPARIN 30MG/0.3ML SYR SUBCUT SCH (08:50)
[2021-05-08] MEDS: SEVELAMER CARBONATE 800 MG TABLET PO SCH ×3 (08:51→16:42)
[2021-05-08] MEDS: LOSARTAN POTASSIUM 100 MG TABLET PO SCH (08:51)
[2021-05-08] MEDS: INSULIN LISPRO 100 UNITS/ML SUBCUT SCH ×4 (09:00→21:00)
[2021-05-08 12:06] LABS: EOSINOPHILS % 4.5 % (0.0-5.0); HEMATOCRIT. 27.7 % (36.0-48.0); HEMOGLOBIN. 9.3 g/dL (12.0-16.0); LYMPHOCYTES % 14.9 % (20.0-50.0); MEAN CORPUSCULAR VOLUME 83.9 fL (81.0-99.0); MEAN PLATELET VOLUME 7.7 fl (7.4-10.4); NEUTROPHILS % 72.6 % (40.0-76.0); PLATELET 227 x1000/uL (130-400); RED CELL DISTRIBUTION WIDTH 13.9 % (11.6-14.6)
[2021-05-08] MEDS: LACTULOSE 20G/30ML UDC PO SCH ×3 (13:07→21:00)
[2021-05-08 20:00] VITALS: BP 142/64
[2021-05-08] MEDS: POLYETHYLENE GLYCOL 3350 (17GM) 1 DOSE PACK PO SCH (21:00)
[2021-05-09] MEDS: NIFEDIPINE XL 60MG TAB PO SCH ×2 (00:37→09:00)
[2021-05-09] MEDS: ATORVASTATIN CALCIUM 40MG TABLET PO SCH (00:38)
[2021-05-09] MEDS: HYDRALAZINE HCL 10MG TABLET PO SCH ×2 (00:38→09:00)
[2021-05-09] MEDS: BLOOD SUGAR DIAGNOSTIC STRIP TEST SCH ×2 (06:30→11:46)
[2021-05-09 08:00] VITALS: BP 152/77
[2021-05-09 08:54] VITALS: BP 152/77
[2021-05-09] MEDS: DULOXETINE HCL 20MG DR CAPSULE PO SCH (09:00)
[2021-05-09] MEDS: DOCUSATE SODIUM 100MG CAPSULE PO SCH (09:00)
[2021-05-09] MEDS: FOLIC ACID 1MG TABLET PO SCH (09:00)
[2021-05-09] MEDS: ASPIRIN 81MG TABLET PO SCH (09:00)
[2021-05-09] MEDS: SEVELAMER CARBONATE 800 MG TABLET PO SCH ×2 (09:00→12:27)
[2021-05-09] MEDS: INSULIN LISPRO 100 UNITS/ML SUBCUT SCH ×2 (09:00→12:28)
[2021-05-09] MEDS: LOSARTAN POTASSIUM 100 MG TABLET PO SCH (09:00)
[2021-05-09] MEDS: FAMOTIDINE 20MG TABLET PO SCH (09:00)
[2021-05-09] MEDS: ENOXAPARIN 30MG/0.3ML SYR SUBCUT SCH (09:00)
[2021-05-09] MEDS ORDERED: CLONIDINE HCL 0.2MG/24HR PATCH TD SCH (12:00)
== END 2021-05-09 14:17 | DRG 64 ==
LOC: EDBD 23:39
PROVIDERS: ADMIT Physical Medicine & Rehabilitation Spinal Cord Injury Medicine; ATTEND Internal Medicine
DX: I63.9 Cerebral infarction, unspecified (principal); G92 Toxic encephalopathy; N18.6 End stage renal disease; I13.2 Hypertensive heart and chronic kidney disease with heart failure and with stage 5 chronic kidney disease, or end stage renal disease; E44.1 Mild protein-calorie malnutrition; I50.32 Chronic diastolic (congestive) heart failure; N39.0 Urinary tract infection, site not specified; R47.1 Dysarthria and anarthria; R47.01 Aphasia; D64.9 Anemia, unspecified; E11.22 Type 2 diabetes mellitus with diabetic chronic kidney disease; E11.649 Type 2 diabetes mellitus with hypoglycemia without coma; E53.8 Deficiency of other specified B group vitamins; E78.5 Hyperlipidemia, unspecified; F09 Unspecified mental disorder due to known physiological condition; F39 Unspecified mood [affective] disorder; I25.10 Atherosclerotic heart disease of native coronary artery without angina pectoris; I27.21 Secondary pulmonary arterial hypertension; Z99.2 Dependence on renal dialysis; Z98.61 Coronary angioplasty status; Z90.710 Acquired absence of both cervix and uterus; K80.20 Calculus of gallbladder without cholecystitis without obstruction
CPT/HCPCS: 36415; 70551; 80048; 80053; 82270; 82306; 82962; 83735; 84100; 84134; 84484; 85025; 86705; 86709; 86803; 87340; 87426; 92523; 92610; 93005; 93312; 93970; 93971; 97110; 97116; 97162; 97166; 97530; 97535; C1893; J0360; J1650; J1815; J2250; J2270; J2405; J2765; J3010

== ENCOUNTER 2023-09-10 18:25 | Emergency (ER) | payer MEDICARE, MEDICAID ==
[~2023-09-10] VITALS: Ht 165.1 cm; Wt 70.5 kg
[~2023-09-10 18:25] MED LIST: CARV6.2548 MT; CINA30 MT; CLOP-31 PO; DIPH103G TP; DIPH25TA26 MT; FLUT9.9S BOTHNSTRLS; GABA-290 PO; HYDR-4133 PO; IMOD PO; INSU100I24 SQ; LIP40 PO; LORA10TA7 MT; LOSA1TAB34 MT; MED4 MT; PERM60CR4 TP; TRIA15CR61 TP
[2023-09-10 18:33] VITALS: O2SAT 90
[2023-09-10] MEDS ORDERED: ACETAMINOPHEN 325MG TABLET PO ONE (22:30)
[2023-09-10] MEDS: LIDOCAINE 5% PATCH TOP SCH (23:24)
[2023-09-11] MEDS: LIDOCAINE 5% PATCH TOP SCH ×2 (01:23→01:54)
[2023-09-11] MEDS ORDERED: HYDROCODONE/ACETAMINOPHEN 5/325MG TABLET PO ONE (01:45)
[2023-09-11] MEDS ORDERED: CYCLOBENZAPRINE 10MG TABLET PO ONE (01:45)
[2023-09-11 01:54] VITALS: BP 155/72
[2023-09-11] MEDS ORDERED: LIDO700A15 TP (02:20)
[2023-09-11] MEDS ORDERED: TOPUD MT (02:20)
[2023-09-11 02:36] VITALS: PULSE 99; RESP 18; TEMP 98.4
== END 2023-09-11 02:37 | disposition home or self-care (01) ==
LOC: ER 18:25
DX: M54.6 Pain in thoracic spine (principal); I12.0 Hypertensive chronic kidney disease with stage 5 chronic kidney disease or end stage renal disease; E11.22 Type 2 diabetes mellitus with diabetic chronic kidney disease; N18.6 End stage renal disease; Z99.2 Dependence on renal dialysis; Z90.710 Acquired absence of both cervix and uterus; Z98.890 Other specified postprocedural states; Z79.899 Other long term (current) drug therapy
CPT/HCPCS: 71045; 99285